=== PATIENT | female | born 1975 | race Caucasian/White ===

== ENCOUNTER 2017-10-16 18:13 | Inpatient (IN) | payer MEDICAID ==
[2017-10-16] MEDS ORDERED: METHYLERGONOVINE 0.2 MG INJ IM (19:30)
[2017-10-16] MEDS ORDERED: OXYTOCIN 30 UNITS/LR 500 ML IV (19:30)
[2017-10-16] MEDS ORDERED: MISOPROSTOL 200 MCG TAB PR (19:30)
[2017-10-16] MEDS ORDERED: CARBOPROST 250 MCG INJ IM (19:30)
[2017-10-16] MEDS: LACTATED RINGER'S 1,000 ML IV (19:42)
[2017-10-16 20:07] LABS: ABNORMAL IP MESSAGE 1; HEMATOCRIT 40.2 % (37.0-47.0); HEMOGLOBIN 13.6 g/dl (12.0-16.0); MEAN CORPUSCULAR HEMOGLOBIN 30.1 pg (29.0-33.0); MEAN CORPUSCULAR HGB CONC 33.8 g/dl (32.0-37.0); MEAN CORPUSCULAR VOLUME 88.9 fl (82.0-101.0); PLATELET COUNT 87 10^3/UL (140-415); RED BLOOD COUNT 4.52 10^6/ul (4.20-5.40); RED CELL DISTRIBUTION WIDTH 17.8 % (11.5-14.5)
[2017-10-16 20:07] LABS: WHITE BLOOD COUNT 7.1 10^3/ul (4.8-10.8)
[2017-10-16 20:15] LABS: INR 0.88; POSITIVE DIFF @See below; PT RATIO 0.9
[2017-10-16 20:16] LABS: ADD MAN DIFF? YES; PARTIAL THROMBOPLASTIN TIME 27.4 Sec (25.0-35.0)
[2017-10-16 20:28] LABS: GLUCOSE 69 mg/dl (70-220)
[2017-10-16] MEDS ORDERED: CITRIC ACID/SODIUM CITRATE 15 ML CUP (20:46)
[2017-10-16] MEDS ORDERED: ONDANSETRON 4 MG INJ (20:47)
[2017-10-16] MEDS: CITRIC ACID/SODIUM CITRATE 15 ML CUP PO (20:49)
[2017-10-16] MEDS: ONDANSETRON 4 MG INJ IV (20:50)
[2017-10-16 20:51] LABS: ANISOCYTOSIS 1+ (0-0); BAND NEUTROPHILS #M 0.1 10^3/ul (0.0-0.6); BAND NEUTROPHILS % (M) 2 % (0-4); EOSINOPHILS % (M) 2 % (0-7); GIANT THROMBO% (M) 1 % (0-0); LYMPHOCYTES #M 1.2 10^3/ul (0.8-2.9); LYMPHOCYTES % (M) 17 % (15-51); MICROCYTOSIS 1+ (0-0); MONOCYTE #M 0.2 10^3/ul (0.3-0.9); MONOCYTES % (M) 3 % (0-11); PLATELET ESTIMATE DECREASED; POIKILOCYTOSIS 1+ (0-0); SEG NEUT #M 5.4 10^3/ul (1.6-7.5); SEGMENTED NEUTROPHILS (M) % 76 % (39-77); SMUDGE%M 7 % (0-0)
[2017-10-16] MEDS ORDERED: PHENYLephrine (100 MCG/ML) 5ML SYG (22:05)
[2017-10-16] MEDS ORDERED: METOCLOPRAMIDE 10 MG INJ (22:05)
[2017-10-16] MEDS ORDERED: FENTAnyl 50 MCG/ML VIAL (22:05)
[2017-10-16] MEDS ORDERED: morphine SULFATE/PF (10 MG/10 ML) INJ (22:05)
[2017-10-16] MEDS ORDERED: OXYTOCIN 10 UNIT INJ (22:05)
[2017-10-16] MEDS ORDERED: BUPIVACAINE 0.75%/DEXT (SPINAL) 2 ML INJ (22:07)
[2017-10-17] MEDS ORDERED: MEPERIDINE 25 MG INJ IV
[2017-10-17] MEDS ORDERED: EPHEDrine SULFATE 50 MG/5 ML SYG IV
[2017-10-17] MEDS ORDERED: NALBUPHINE HCL (10 MG/1 ML) INJ IV
[2017-10-17] MEDS ORDERED: OXYCODONE/ACETAMINOPHEN (5/325) TAB PO ×2
[2017-10-17] MEDS ORDERED: hydrALAzine 20 MG INJ IV
[2017-10-17] MEDS ORDERED: MIDAZOLAM 1 MG/ML 2 ML INJ IV
[2017-10-17] MEDS ORDERED: TRIMETHOBENZAMIDE 100 MG/ML VIAL IM ×2
[2017-10-17] MEDS ORDERED: NALOXONE (0.4 MG/ML) INJ IV
[2017-10-17] MEDS ORDERED: LABETALOL HCL 20MG INJ IV
[2017-10-17] MEDS ORDERED: ONDANSETRON 4 MG INJ IV ×2
[2017-10-17] MEDS ORDERED: ALBUTEROL 0.083% (NEB) 2.5 MG/3 ML AMP HHN
[2017-10-17] MEDS ORDERED: HYDROmorphONE 1 MG/5 ML IV SYRINGE IV ×3
[2017-10-17] MEDS ORDERED: FENTAnyl 50 MCG/ML VIAL IV ×3
[2017-10-17] MEDS ORDERED: morphine 2 MG INJ IV ×2
[2017-10-17] MEDS ORDERED: DIPHENHYDRAMINE 50 MG INJ IV ×2
[2017-10-17] MEDS ORDERED: IPRATROPIUM (NEB) 0.5 MG/2.5 ML AMP HHN
[2017-10-17] MEDS: CEFAZOLIN 2 GM/50 ML (PMX) 50 ML IV (00:36)
[2017-10-17] MEDS ORDERED: DEXTROSE 5%-LR 1,000 ML IV (00:46)
[2017-10-17] MEDS: OXYTOCIN 30 UNITS/LR 500 ML IV ×2 (00:48→07:00)
[2017-10-17] MEDS ORDERED: LANOLIN 7 GM TUBE TOP (01:00)
[2017-10-17] MEDS ORDERED: METHYLERGONOVINE 0.2 MG INJ IM (01:00)
[2017-10-17] MEDS ORDERED: OXYTOCIN 30 UNITS/LR 500 ML IV (01:00)
[2017-10-17] MEDS ORDERED: METHYLERGONOVINE 0.2 MG TAB PO (01:00)
[2017-10-17] MEDS ORDERED: CARBOPROST 250 MCG INJ IM (01:00)
[2017-10-17] MEDS ORDERED: MAGNESIUM HYDROXIDE 30ML CUP PO ×2 (01:00→15:00)
[2017-10-17] MEDS ORDERED: MISOPROSTOL 200 MCG TAB PR (01:00)
[2017-10-17] MEDS: LACTATED RINGER'S 1,000 ML IV ×3 (06:05→19:23)
[2017-10-17] MEDS: SENNA/DOCUSATE NA (8.6MG/50MG) TAB PO ×2 (09:30→21:00)
[2017-10-17 16:10] LABS: RAPID PLASMA REAGIN NONREACTIVE (NR)
[2017-10-17] MEDS ORDERED: HYDROCODONE/APAP (5/325) TAB PO ×2 (20:00)
[2017-10-17] MEDS: KETOROLAC 30 MG INJ IV (20:07)
[2017-10-18] MEDS: LACTATED RINGER'S 1,000 ML IV (03:23)
[2017-10-18] MEDS: IBUPROFEN 800 MG TAB PO ×4 (05:29→21:59)
[2017-10-18] MEDS: SENNA/DOCUSATE NA (8.6MG/50MG) TAB PO ×2 (08:29→21:15)
[2017-10-18 08:41] LABS: ADD MAN DIFF? NO
[2017-10-18 08:44] LABS: ABNORMAL IP MESSAGE 1; BASOPHILS % 0.2 % (0.0-2.0); EOSINOPHILS # 0.1 10^3/ul (0.0-0.5); EOSINOPHILS % 0.5 % (0.0-7.0); HEMATOCRIT 36.8 % (37.0-47.0); HEMOGLOBIN 12.3 g/dl (12.0-16.0); LYMPHOCYTES # 0.9 10^3/ul (0.8-2.9); LYMPHOCYTES % 8.9 % (15.0-51.0); MEAN CORPUSCULAR HGB CONC 33.4 g/dl (32.0-37.0); MEAN CORPUSCULAR VOLUME 89.8 fl (82.0-101.0); MEAN PLATELET VOLUME 13.5 fl (7.4-10.4); MONOCYTE # 0.7 10^3/ul (0.3-0.9); MONOCYTES % 7.1 % (0.0-11.0); NEUTROPHIL # 8.5 10^3/ul (1.6-7.5); NEUTROPHILS % 82.7 % (39.0-77.0); PLATELET COUNT 91 10^3/UL (140-415); RED CELL DISTRIBUTION WIDTH 17.4 % (11.5-14.5)
[2017-10-18 08:44] LABS: WHITE BLOOD COUNT 10.3 10^3/ul (4.8-10.8)
[2017-10-18 08:54] LABS: POSITIVE DIFF @See below
[2017-10-19] MEDS: IBUPROFEN 800 MG TAB PO ×2 (05:37→14:14)
[2017-10-19] MEDS: SENNA/DOCUSATE NA (8.6MG/50MG) TAB PO (09:38)
[2017-10-19] MEDS: DIPHTH/TET/ACEL PERTUSS (ADULT) 0.5 ML VIAL IM* (10:25)
[2017-10-20] MEDS ORDERED: MEASLES,MUMPS,RUBELLA VACCINE INJ SC* (09:00)
[2017-10-20] MEDS ORDERED: DIPHTH/TET/ACEL PERTUSS (ADULT) 0.5 ML VIAL IM* (09:00)
== END 2017-10-19 16:55 | disposition home or self-care (01) | DRG 766 ==
LOC: PP1 10-17 02:08 → L-D 18:13
PROVIDERS: Obstetrics & Gynecology
PROC: 10D00Z1 Extraction of Products of Conception, Low, Open Approach (ICD-10-PCS; principal; 2017-10-16 23:15)
PROC: 0UB70ZZ Excision of Bilateral Fallopian Tubes, Open Approach (ICD-10-PCS; 2017-10-16 23:15)
DX: O24.420 Gestational diabetes mellitus in childbirth, diet controlled (principal); O77.0 Labor and delivery complicated by meconium in amniotic fluid; Z3A.39 39 weeks gestation of pregnancy; Z37.0 Single live birth; Z30.2 Encounter for sterilization; Z23 Encounter for immunization
CPT/HCPCS: 82947; 82962; 85025; 85610; 85730; 86592; 86850; 86870; 86900; 86901; 86902; 88302; 90715; 99464